=== PATIENT | female | born 1965 | race Caucasian/White ===

== ENCOUNTER 2017-01-18 15:05 | Emergency (ER) | payer OTHER ==
[2017-01-18] MEDS ORDERED: Acetaminophen 325 MG TAB ONE (15:32)
--- NOTE | 2017-01-18 16:14 | RAD ---
RIGHT KNEE FOUR VIEWS 01/18/17 HISTORY: Trauma right knee pain. FINDINGS/IMPRESSION: Mild degenerative changes are present. No acute fracture or dislocation is identified. POS: [facility]
--- NOTE | 2017-01-18 16:18 | RAD ---
TWO VIEWS RIGHT HIP 01/18/17 HISTORY: Trauma. AP and frogleg views right hip is obtained. The right hip is unremarkable. No evidence of right hip fractures, subluxations or bony lesions seen . IMPRESSION: Normal two views right hip. POS: [facility]
--- NOTE | 2017-01-18 16:22 | RAD ---
THREE VIEWS RIGHT ANKLE 01/18/17 HISTORY: Trauma. Tripped over desk at work with right ankle pain. AP, lateral, and oblique views right ankle obtained. A calcaneal spur is seen. No evidence of fractures, subluxations or bony lesions seen. IMPRESSION: Normal three views right ankle. POS: [facility]
== END 2017-01-18 16:14 | disposition home or self-care (01) ==
LOC: NAV ERS 15:05
DX: S93.401A Sprain of unspecified ligament of right ankle, initial encounter (principal); S80.01XA Contusion of right knee, initial encounter; W19.XXXA Unspecified fall, initial encounter